=== PATIENT | female | born 1940 | race African-American/Black ===

== ENCOUNTER 2020-04-27 10:17 | Inpatient (IN) | payer OTHER ==
[~2020-04-27] VITALS: Ht 170.2 cm; Wt 80.3 kg
[2020-04-27] MEDS ORDERED: VANCOMYCIN 1 G PREMIX 200 ML IV ONE (10:45)
[2020-04-27] MEDS ORDERED: PIPERACILLIN/TAZ 3.375G PREMIX 50 ML IV ONE (10:45)
[2020-04-27] MEDS ORDERED: DEXAMETHASONE 10 MG/ML VIAL IV ONE (11:15)
[2020-04-27 11:35] LABS: HEMATOCRIT. 37.2 % (36.0-48.0); HEMOGLOBIN. 12.2 g/dL (12.0-16.0); MEAN CORPUSCULAR HEMOGLOBIN 31.1 pg (28.0-32.0); MEAN PLATELET VOLUME 8.4 fl (7.4-10.4); PLATELET 218 x1000/uL (130-400); RED BLOOD CELL COUNT 3.92 mill/uL (4.2-5.4); RED CELL DISTRIBUTION WIDTH 13.9 % (11.6-14.6)
[2020-04-27 11:40] LABS: CHLORIDE 105 mEq/L (98-107)
[2020-04-27 11:45] LABS: D-DIMER 1.07 mg/L FEU (<0.50); INR 1.3; PROTHROMBIN TIME 13.4 sec (9.6-11.0)
[2020-04-27] MEDS ORDERED: POTASSIUM CHLORIDE 20MEQ TABLET SR PO NR (12:00)
[2020-04-27 12:14] LABS: PLATELET ESTIMATE NORMAL
[2020-04-27 12:25] LABS: CLARITY URINE CLEAR (CLEAR); COLOR URINE YELLOW (YELLOW); KETONES URINE 1+ (NEGATIVE); LEUKOCYTE ESTERASE URINE NEGATIVE (NEGATIVE); NITRITE URINE NEGATIVE (NEGATIVE); OCCULT BLOOD URINE NEGATIVE (NEGATIVE); PH URINE 6.5 (4.5-8.0); PROTEIN URINE 2+ (NEGATIVE); SPECIFIC GRAVITY URINE 1.017 (1.005-1.030)
[2020-04-27] MEDS ORDERED: KCL 10MEQ/50ML PREMIX 50 ML IV ONE (12:30)
[2020-04-27] MEDS ORDERED: DEXTROSE 50% WATER 50ML SYRINGE IV PRN (13:15)
[2020-04-27] MEDS ORDERED: GUAIFENESIN-DM 200MG-20MG/10ML UDC PO PRN (13:15)
[2020-04-27] MEDS ORDERED: ONDANSETRON HCL 4MG/2ML INJ IV PRN (13:15)
[2020-04-27] MEDS ORDERED: POTASSIUM CHLORIDE 20MEQ TABLET SR PO SCH (13:15)
[2020-04-27] MEDS ORDERED: TRAZODONE HCL 50MG TABLET PO PRN (13:15)
[2020-04-27] MEDS: AZITHROMYCIN 500 MG in DEXT 5% WATER 250 ML IV SCH (13:15)
[2020-04-27] MEDS: INSULIN LISPRO 100 UNITS/ML SUBCUT SCH ×2 (13:20→22:00)
[2020-04-27] MEDS ORDERED: ALBUTEROL 6.7GM HFA INHALER ORI PRN (14:00)
[2020-04-27] MEDS: AMLODIPINE 2.5MG TABLET PO SCH (14:00)
[2020-04-27] MEDS: ENOXAPARIN 80MG/0.8ML SYR SUBCUT SCH ×2 (14:00→23:13)
[2020-04-27] MEDS ORDERED: KCL 10MEQ/50ML PREMIX 50 ML IV SCH (14:00)
[2020-04-27] MEDS: INSULIN GLARGINE UD 100 UNITS/ML SYR SUBCUT SCH (15:00)
[2020-04-27] MEDS: BLOOD SUGAR DIAGNOSTIC STRIP TEST SCH ×2 (17:14→22:29)
[2020-04-27 21:07] LABS: TOTAL IRON BINDING CAPACITY 161 ug/dL (250-450)
[2020-04-28] MEDS: ACETAMINOPHEN 325MG TABLET PO PRN (01:42)
[2020-04-28 05:32] LABS: HEMATOCRIT. 36.2 % (36.0-48.0); HEMOGLOBIN. 12.3 g/dL (12.0-16.0); MEAN CORPUSCULAR HEMOGLOBIN 32.3 pg (28.0-32.0); MEAN CORPUSCULAR VOLUME 94.9 fL (81.0-99.0); MEAN PLATELET VOLUME 8.6 fl (7.4-10.4); PLATELET 199 x1000/uL (130-400); RED BLOOD CELL COUNT 3.82 mill/uL (4.2-5.4)
[2020-04-28 05:57] LABS: CHLORIDE 109 mEq/L (98-107)
[2020-04-28] MEDS: BLOOD SUGAR DIAGNOSTIC STRIP TEST SCH ×4 (06:38→20:06)
[2020-04-28] MEDS: INSULIN LISPRO 100 UNITS/ML SUBCUT SCH ×4 (06:38→20:11)
[2020-04-28 08:03] LABS: PLATELET ESTIMATE NORMAL
[2020-04-28] MEDS: ZINC SULFATE 220 MG ( 50 ) CAPSULE PO SCH (08:15)
[2020-04-28] MEDS: ASCORBIC ACID 500 MG TABLET PO SCH ×2 (08:16→16:19)
[2020-04-28] MEDS: ENOXAPARIN 80MG/0.8ML SYR SUBCUT SCH ×2 (08:24→20:05)
[2020-04-28] MEDS: CHOLECALCIFEROL (D3) 1000 UNIT TABLET PO SCH (08:43)
[2020-04-28] MEDS: AMLODIPINE 2.5MG TABLET PO SCH (08:43)
[2020-04-28] MEDS ORDERED: CEFTRIAXONE 1 G PREMIX 50 ML IV SCH (09:00)
[2020-04-28] MEDS: HYDROCODONE/ACETAMINOPHEN 5/325MG TABLET PO PRN (09:17)
[2020-04-28] MEDS: INSULIN GLARGINE UD 100 UNITS/ML SYR SUBCUT SCH (10:12)
[2020-04-28] MEDS: AZITHROMYCIN 500 MG in DEXT 5% WATER 250 ML IV SCH (13:25)
[2020-04-28] MEDS ORDERED: TRAMADOL 50MG TABLET PO PRN (15:30)
[2020-04-28 21:35] LABS: CLARITY URINE CLOUDY (CLEAR); COLOR URINE ORANGE (YELLOW); KETONES URINE TRACE (NEGATIVE); LEUKOCYTE ESTERASE URINE 2+ (NEGATIVE); NITRITE URINE NEGATIVE (NEGATIVE); OCCULT BLOOD URINE 3+ (NEGATIVE); PH URINE 5.5 (4.5-8.0); PROTEIN URINE 3+ (NEGATIVE); SPECIFIC GRAVITY URINE 1.029 (1.005-1.030)
[2020-04-28 21:56] LABS: *AMPHETAMINES SCREEN URINE NEGATIVE (NEGATIVE); *BARBITURATES SCREEN URINE NEGATIVE (NEGATIVE); *BENZODIAZEPINES SCREEN URINE NEGATIVE (NEGATIVE); *COCAINE SCREEN URINE NEGATIVE (NEGATIVE); METHADONE URINE SCREEN NEGATIVE (NEGATIVE); OPIATES URINE SCREEN PRESUMTIVE POSITIVE (NEGATIVE)
[2020-04-28 21:57] LABS: CANNABINOID URINE SCREEN NEGATIVE (NEGATIVE); PHENCYCLIDINE URINE SCREEN NEGATIVE (NEGATIVE)
[2020-04-29 00:18] VITALS: BP 138/81
[2020-04-29 00:20] VITALS: BP 138/81
[2020-04-29 04:00] VITALS: BP 154/88
[2020-04-29] MEDS: INSULIN LISPRO 100 UNITS/ML SUBCUT SCH ×4 (05:34→21:57)
[2020-04-29] MEDS: BLOOD SUGAR DIAGNOSTIC STRIP TEST SCH ×4 (05:34→21:00)
[2020-04-29 06:34] LABS: CHLORIDE 110 mEq/L (98-107)
[2020-04-29 06:36] LABS: BASOPHILS % 0.2 % (0.0-2.0); EOSINOPHILS % 0.3 % (0.0-5.0); HEMATOCRIT. 37.4 % (36.0-48.0); HEMOGLOBIN. 12.5 g/dL (12.0-16.0); LYMPHOCYTES % 12.3 % (20.0-50.0); MEAN CORPUSCULAR HEMOGLOBIN 31.7 pg (28.0-32.0); MEAN CORPUSCULAR VOLUME 94.8 fL (81.0-99.0); MEAN PLATELET VOLUME 8.8 fl (7.4-10.4); MONOCYTES % 13.1 % (2.0-8.0); NEUTROPHILS % 74.1 % (40.0-76.0); PLATELET 238 x1000/uL (130-400); RED BLOOD CELL COUNT 3.94 mill/uL (4.2-5.4); RED CELL DISTRIBUTION WIDTH 14.1 % (11.6-14.6)
[2020-04-29 08:00] VITALS: BP 152/75
[2020-04-29] MEDS ORDERED: POTASSIUM CHLORIDE 20MEQ TABLET SR PO NR ×3 (09:00→16:00)
[2020-04-29] MEDS: ASCORBIC ACID 500 MG TABLET PO SCH ×2 (09:39→16:22)
[2020-04-29] MEDS: CHOLECALCIFEROL (D3) 1000 UNIT TABLET PO SCH (09:39)
[2020-04-29] MEDS: AMLODIPINE 2.5MG TABLET PO SCH (09:39)
[2020-04-29] MEDS: ENOXAPARIN 80MG/0.8ML SYR SUBCUT SCH (09:39)
[2020-04-29] MEDS: ZINC SULFATE 220 MG ( 50 ) CAPSULE PO SCH (09:40)
[2020-04-29] MEDS: CEFTRIAXONE 1,000 MG in DEXTROSE 5% WATER 50 ML IV SCH ×2 (10:59→11:03)
[2020-04-29] MEDS ORDERED: DEXAMETHASONE 4MG/ML 1ML VIAL IV SCH (14:00)
[2020-04-29] MEDS ORDERED: AZITHROMYCIN 500MG in DEXTROSE 5% WATER 250ML IV SCH (15:00)
[2020-04-29 16:00] VITALS: BP 152/95
[2020-04-29] MEDS: INSULIN GLARGINE UD 100 UNITS/ML SYR SUBCUT SCH (16:21)
[2020-04-29 20:00] VITALS: BP 150/89
[2020-04-29] MEDS: ENOXAPARIN 100MG/ML SYR SUBCUT SCH (21:35)
[2020-04-30] VITALS (7 sets, daily range): BP systolic 137–176; BP diastolic 60–86
[2020-04-30] MEDS: BLOOD SUGAR DIAGNOSTIC STRIP TEST SCH ×4 (04:58→19:56)
[2020-04-30] MEDS: INSULIN LISPRO 100 UNITS/ML SUBCUT SCH ×4 (05:24→21:23)
[2020-04-30 07:12] LABS: BASOPHILS % 0.2 % (0.0-2.0); HEMATOCRIT. 39.3 % (36.0-48.0); HEMOGLOBIN. 12.8 g/dL (12.0-16.0); LYMPHOCYTES % 7.6 % (20.0-50.0); MEAN CORPUSCULAR HEMOGLOBIN 31.5 pg (28.0-32.0); MEAN CORPUSCULAR VOLUME 96.6 fL (81.0-99.0); MEAN PLATELET VOLUME 9.3 fl (7.4-10.4); MONOCYTES % 10.7 % (2.0-8.0); NEUTROPHILS % 81.5 % (40.0-76.0); PLATELET 238 x1000/uL (130-400); RED BLOOD CELL COUNT 4.07 mill/uL (4.2-5.4)
[2020-04-30 07:42] LABS: CHLORIDE 108 mEq/L (98-107)
[2020-04-30] MEDS: INSULIN GLARGINE UD 100 UNITS/ML SYR SUBCUT SCH (09:55)
[2020-04-30] MEDS: AMLODIPINE 10MG TABLET PO SCH (09:56)
[2020-04-30] MEDS: ENOXAPARIN 100MG/ML SYR SUBCUT SCH ×2 (09:56→21:16)
[2020-04-30] MEDS: ZINC SULFATE 220 MG ( 50 ) CAPSULE PO SCH (09:56)
[2020-04-30] MEDS: CHOLECALCIFEROL (D3) 1000 UNIT TABLET PO SCH (09:56)
[2020-04-30] MEDS: ASCORBIC ACID 500 MG TABLET PO SCH ×2 (09:57→18:00)
[2020-04-30] MEDS ORDERED: FUROSEMIDE 40MG/4ML VIAL IVP NR (14:45)
[2020-04-30] MEDS: DEXAMETHASONE 10 MG/ML VIAL IV SCH (18:00)
[2020-04-30] MEDS: GUAIFENESIN 600MG ER TABLET PO SCH (21:16)
[2020-05-01] VITALS: BP 138/70
[2020-05-01 04:00] VITALS: BP 148/80
[2020-05-01] MEDS: BLOOD SUGAR DIAGNOSTIC STRIP TEST SCH ×4 (05:37→21:43)
[2020-05-01] MEDS: INSULIN LISPRO 100 UNITS/ML SUBCUT SCH ×4 (06:22→21:00)
[2020-05-01 08:00] VITALS: BP 154/90
[2020-05-01 08:50] LABS: CHLORIDE 104 mEq/L (98-107)
[2020-05-01 09:02] LABS: BASOPHILS % 0.1 % (0.0-2.0); HEMATOCRIT. 41.1 % (36.0-48.0); HEMOGLOBIN. 13.6 g/dL (12.0-16.0); LYMPHOCYTES % 8.1 % (20.0-50.0); MEAN CORPUSCULAR HEMOGLOBIN 31.9 pg (28.0-32.0); MEAN CORPUSCULAR VOLUME 96.7 fL (81.0-99.0); MEAN PLATELET VOLUME 9.4 fl (7.4-10.4); MONOCYTES % 7.1 % (2.0-8.0); NEUTROPHILS % 84.7 % (40.0-76.0); PLATELET 259 x1000/uL (130-400); RED BLOOD CELL COUNT 4.26 mill/uL (4.2-5.4)
[2020-05-01] MEDS: ENOXAPARIN 100MG/ML SYR SUBCUT SCH ×2 (10:54→21:42)
[2020-05-01] MEDS: GUAIFENESIN 600MG ER TABLET PO SCH ×2 (10:55→21:43)
[2020-05-01] MEDS: CHOLECALCIFEROL (D3) 1000 UNIT TABLET PO SCH (10:55)
[2020-05-01] MEDS: ASCORBIC ACID 500 MG TABLET PO SCH ×2 (10:55→17:29)
[2020-05-01] MEDS: AMLODIPINE 10MG TABLET PO SCH (10:56)
[2020-05-01] MEDS: FUROSEMIDE 40MG/4ML VIAL IVP SCH ×2 (10:56→21:43)
[2020-05-01] MEDS: ZINC SULFATE 220 MG ( 50 ) CAPSULE PO SCH (10:56)
[2020-05-01] MEDS: POTASSIUM CHLORIDE 20MEQ/PACKET PO SCH ×2 (10:57→17:28)
[2020-05-01] MEDS: INSULIN GLARGINE UD 100 UNITS/ML SYR SUBCUT SCH (11:05)
[2020-05-01 12:00] VITALS: BP 106/70
[2020-05-01] MEDS: DEXAMETHASONE 10 MG/ML VIAL IV SCH (13:31)
[2020-05-01 16:00] VITALS: BP 144/61
[2020-05-01 20:00] VITALS: BP 133/76
[2020-05-02] VITALS: BP 103/61
[2020-05-02 04:00] VITALS: BP 115/65
[2020-05-02] MEDS: BLOOD SUGAR DIAGNOSTIC STRIP TEST SCH ×4 (06:31→21:00)
[2020-05-02] MEDS: INSULIN LISPRO 100 UNITS/ML SUBCUT SCH ×4 (07:40→22:56)
[2020-05-02 08:00] VITALS: BP 128/63
[2020-05-02 08:48] LABS: CHLORIDE 103 mEq/L (98-107)
[2020-05-02 08:55] LABS: HEMATOCRIT. 43.9 % (36.0-48.0); HEMOGLOBIN. 14.5 g/dL (12.0-16.0); MEAN CORPUSCULAR HEMOGLOBIN 31.6 pg (28.0-32.0); MEAN CORPUSCULAR VOLUME 95.8 fL (81.0-99.0); MEAN PLATELET VOLUME 9.2 fl (7.4-10.4); PLATELET 293 x1000/uL (130-400); RED BLOOD CELL COUNT 4.58 mill/uL (4.2-5.4); RED CELL DISTRIBUTION WIDTH 14.1 % (11.6-14.6)
[2020-05-02] MEDS: ENOXAPARIN 100MG/ML SYR SUBCUT SCH ×2 (10:03→22:54)
[2020-05-02] MEDS: GUAIFENESIN 600MG ER TABLET PO SCH ×2 (10:03→22:54)
[2020-05-02] MEDS: AMLODIPINE 10MG TABLET PO SCH (10:04)
[2020-05-02] MEDS: CHOLECALCIFEROL (D3) 1000 UNIT TABLET PO SCH (10:04)
[2020-05-02] MEDS: ASCORBIC ACID 500 MG TABLET PO SCH ×2 (10:05→18:22)
[2020-05-02] MEDS: ZINC SULFATE 220 MG ( 50 ) CAPSULE PO SCH (10:05)
[2020-05-02] MEDS: POTASSIUM CHLORIDE 20MEQ/PACKET PO SCH ×2 (10:05→18:23)
[2020-05-02] MEDS: FUROSEMIDE 40MG/4ML VIAL IVP SCH ×2 (10:06→22:57)
[2020-05-02] MEDS: INSULIN GLARGINE UD 100 UNITS/ML SYR SUBCUT SCH (11:36)
[2020-05-02 12:00] VITALS: BP 110/61
[2020-05-02] MEDS: DEXAMETHASONE 10 MG/ML VIAL IV SCH (14:34)
[2020-05-02 16:00] VITALS: BP 123/63
[2020-05-02 20:00] VITALS: BP 128/68
[2020-05-02 20:35] LABS: PLATELET ESTIMATE NORMAL
[2020-05-03] VITALS (7 sets, daily range): BP systolic 111–153; BP diastolic 62–92
[2020-05-03] MEDS: HYDROCODONE/ACETAMINOPHEN 5/325MG TABLET PO PRN (00:37)
[2020-05-03 06:52] LABS: CHLORIDE 103 mEq/L (98-107)
[2020-05-03 07:31] LABS: HEMATOCRIT. 43.4 % (36.0-48.0); HEMOGLOBIN. 14.2 g/dL (12.0-16.0); MEAN CORPUSCULAR HEMOGLOBIN 31.3 pg (28.0-32.0); MEAN CORPUSCULAR VOLUME 95.7 fL (81.0-99.0); MEAN PLATELET VOLUME 9.7 fl (7.4-10.4); PLATELET 277 x1000/uL (130-400); RED BLOOD CELL COUNT 4.53 mill/uL (4.2-5.4); RED CELL DISTRIBUTION WIDTH 14.6 % (11.6-14.6)
[2020-05-03] MEDS: BLOOD SUGAR DIAGNOSTIC STRIP TEST SCH ×4 (07:49→21:00)
[2020-05-03] MEDS: INSULIN LISPRO 100 UNITS/ML SUBCUT SCH ×4 (09:14→22:13)
[2020-05-03] MEDS: GUAIFENESIN 600MG ER TABLET PO SCH ×2 (09:14→22:13)
[2020-05-03] MEDS: CHOLECALCIFEROL (D3) 1000 UNIT TABLET PO SCH (09:14)
[2020-05-03] MEDS: ASCORBIC ACID 500 MG TABLET PO SCH ×2 (09:14→17:22)
[2020-05-03] MEDS: ENOXAPARIN 100MG/ML SYR SUBCUT SCH ×2 (09:14→22:14)
[2020-05-03] MEDS: AMLODIPINE 10MG TABLET PO SCH (09:14)
[2020-05-03] MEDS: ZINC SULFATE 220 MG ( 50 ) CAPSULE PO SCH (09:14)
[2020-05-03] MEDS: FUROSEMIDE 40MG/4ML VIAL IVP SCH ×2 (09:14→21:41)
[2020-05-03] MEDS: POTASSIUM CHLORIDE 20MEQ/PACKET PO SCH ×2 (09:15→17:22)
[2020-05-03 11:57] LABS: PLATELET ESTIMATE NORMAL
[2020-05-03] MEDS: INSULIN GLARGINE UD 100 UNITS/ML SYR SUBCUT SCH (12:10)
[2020-05-03] MEDS: ACETAMINOPHEN 325MG TABLET PO PRN (15:47)
[2020-05-03] MEDS ORDERED: LORAZEPAM 2MG/ML CPJ IM PRN (16:30)
[2020-05-03] MEDS ORDERED: LORAZEPAM 2MG/ML CPJ IV PRN (16:44)
[2020-05-03] MEDS: DEXAMETHASONE 10 MG/ML VIAL IV SCH (17:22)
[2020-05-04] VITALS: BP 125/80
[2020-05-04 04:00] VITALS: BP_SYST 125; BP_SYST 142; BP_DIAS 80; BP_DIAS 84
[2020-05-04] MEDS: BLOOD SUGAR DIAGNOSTIC STRIP TEST SCH ×4 (04:41→21:00)
[2020-05-04] MEDS: INSULIN LISPRO 100 UNITS/ML SUBCUT SCH ×5 (06:28→21:00)
[2020-05-04 06:33] LABS: HEMATOCRIT. 45.2 % (36.0-48.0); MEAN CORPUSCULAR HEMOGLOBIN 31.8 pg (28.0-32.0); MEAN CORPUSCULAR VOLUME 95.9 fL (81.0-99.0); MEAN PLATELET VOLUME 9.6 fl (7.4-10.4); PLATELET 291 x1000/uL (130-400); RED BLOOD CELL COUNT 4.72 mill/uL (4.2-5.4); RED CELL DISTRIBUTION WIDTH 14.3 % (11.6-14.6)
[2020-05-04 06:47] LABS: CHLORIDE 103 mEq/L (98-107)
[2020-05-04 08:00] VITALS: BP 127/70
[2020-05-04] MEDS: GUAIFENESIN 600MG ER TABLET PO SCH ×2 (09:00→21:28)
[2020-05-04] MEDS: POTASSIUM CHLORIDE 20MEQ/PACKET PO SCH ×2 (09:47→21:28)
[2020-05-04] MEDS: CHOLECALCIFEROL (D3) 1000 UNIT TABLET PO SCH (09:47)
[2020-05-04] MEDS: ZINC SULFATE 220 MG ( 50 ) CAPSULE PO SCH (09:48)
[2020-05-04] MEDS: AMLODIPINE 10MG TABLET PO SCH (09:48)
[2020-05-04] MEDS: FUROSEMIDE 40MG/4ML VIAL IVP SCH ×2 (09:48→21:27)
[2020-05-04] MEDS: ASCORBIC ACID 500 MG TABLET PO SCH (09:48)
[2020-05-04] MEDS: ENOXAPARIN 100MG/ML SYR SUBCUT SCH ×2 (09:49→21:28)
[2020-05-04] MEDS: INSULIN GLARGINE UD 100 UNITS/ML SYR SUBCUT SCH (10:37)
[2020-05-04 12:00] VITALS: BP 138/80
[2020-05-04] MEDS: DEXAMETHASONE 10 MG/ML VIAL IV SCH (14:16)
[2020-05-04 14:22] LABS: PLATELET ESTIMATE NORMAL
[2020-05-04 16:00] VITALS: BP 97/76
[2020-05-04 20:00] VITALS: BP 140/90
[2020-05-05] VITALS (7 sets, daily range): BP systolic 117–140; BP diastolic 67–85
[2020-05-05] MEDS: BLOOD SUGAR DIAGNOSTIC STRIP TEST SCH ×4 (04:53→21:00)
[2020-05-05] MEDS: INSULIN LISPRO 100 UNITS/ML SUBCUT SCH ×4 (05:25→21:00)
[2020-05-05 06:40] LABS: HEMATOCRIT. 45.8 % (36.0-48.0); HEMOGLOBIN. 15.4 g/dL (12.0-16.0); MEAN CORPUSCULAR HEMOGLOBIN 32.4 pg (28.0-32.0); MEAN CORPUSCULAR VOLUME 96.6 fL (81.0-99.0); MEAN PLATELET VOLUME 9.6 fl (7.4-10.4); PLATELET 279 x1000/uL (130-400); RED BLOOD CELL COUNT 4.75 mill/uL (4.2-5.4); RED CELL DISTRIBUTION WIDTH 14.3 % (11.6-14.6)
[2020-05-05 06:45] LABS: CHLORIDE 104 mEq/L (98-107)
[2020-05-05] MEDS: CHOLECALCIFEROL (D3) 1000 UNIT TABLET PO SCH (09:00)
[2020-05-05] MEDS: ENOXAPARIN 100MG/ML SYR SUBCUT SCH ×2 (09:54→23:04)
[2020-05-05] MEDS: ZINC SULFATE 220 MG ( 50 ) CAPSULE PO SCH (09:55)
[2020-05-05] MEDS: AMLODIPINE 10MG TABLET PO SCH (09:55)
[2020-05-05] MEDS: GUAIFENESIN 600MG ER TABLET PO SCH ×2 (09:56→23:04)
[2020-05-05] MEDS: INSULIN GLARGINE UD 100 UNITS/ML SYR SUBCUT SCH (10:01)
[2020-05-05] MEDS: METOPROLOL TARTRATE 25MG TABLET PO SCH ×2 (11:45→23:04)
[2020-05-05] MEDS: POTASSIUM CHLORIDE 20MEQ/PACKET PO SCH ×2 (11:46→17:12)
[2020-05-05] MEDS: DEXAMETHASONE 10 MG/ML VIAL IV SCH (14:46)
[2020-05-05 23:10] LABS: PLATELET ESTIMATE NORMAL
[2020-05-06] VITALS: BP 129/76
[2020-05-06 04:00] VITALS: BP 137/81
[2020-05-06] MEDS: BLOOD SUGAR DIAGNOSTIC STRIP TEST SCH ×4 (06:10→21:00)
[2020-05-06] MEDS: INSULIN LISPRO 100 UNITS/ML SUBCUT SCH ×4 (06:11→22:49)
[2020-05-06 06:48] LABS: HEMOGLOBIN. 16.5 g/dL (12.0-16.0); MEAN CORPUSCULAR VOLUME 99.2 fL (81.0-99.0); MEAN PLATELET VOLUME 10.1 fl (7.4-10.4); PLATELET 216 x1000/uL (130-400); RED BLOOD CELL COUNT 5.14 mill/uL (4.2-5.4); RED CELL DISTRIBUTION WIDTH 14.4 % (11.6-14.6)
[2020-05-06 06:56] LABS: CHLORIDE 107 mEq/L (98-107)
[2020-05-06 08:00] VITALS: BP 128/67
[2020-05-06] MEDS: INSULIN GLARGINE UD 100 UNITS/ML SYR SUBCUT SCH (10:29)
[2020-05-06] MEDS: ENOXAPARIN 100MG/ML SYR SUBCUT SCH ×2 (10:30→22:49)
[2020-05-06] MEDS: ZINC SULFATE 220 MG ( 50 ) CAPSULE PO SCH (10:30)
[2020-05-06] MEDS: AMLODIPINE 10MG TABLET PO SCH (10:30)
[2020-05-06] MEDS: METOPROLOL TARTRATE 25MG TABLET PO SCH ×2 (10:30→22:48)
[2020-05-06] MEDS: CHOLECALCIFEROL (D3) 1000 UNIT TABLET PO SCH (10:30)
[2020-05-06] MEDS: POTASSIUM CHLORIDE 20MEQ/PACKET PO SCH (10:31)
[2020-05-06] MEDS: GUAIFENESIN 600MG ER TABLET PO SCH ×2 (10:31→22:47)
[2020-05-06 12:00] VITALS: BP 134/85
[2020-05-06] MEDS: DEXAMETHASONE 10 MG/ML VIAL IV SCH (12:52)
[2020-05-06 13:12] LABS: PLATELET ESTIMATE NORMAL
[2020-05-06 16:00] VITALS: BP 140/85
[2020-05-06 20:00] VITALS: BP 158/83
[2020-05-07] VITALS (7 sets, daily range): BP systolic 120–148; BP diastolic 60–83
[2020-05-07] MEDS: INSULIN LISPRO 100 UNITS/ML SUBCUT SCH ×4 (06:14→21:00)
[2020-05-07] MEDS: BLOOD SUGAR DIAGNOSTIC STRIP TEST SCH ×4 (06:14→21:50)
[2020-05-07 07:03] LABS: HEMATOCRIT. 44.8 % (36.0-48.0); HEMOGLOBIN. 14.7 g/dL (12.0-16.0); MEAN CORPUSCULAR HEMOGLOBIN 31.8 pg (28.0-32.0); MEAN PLATELET VOLUME 10.1 fl (7.4-10.4); PLATELET 239 x1000/uL (130-400); RED BLOOD CELL COUNT 4.62 mill/uL (4.2-5.4); RED CELL DISTRIBUTION WIDTH 14.7 % (11.6-14.6)
[2020-05-07] MEDS: ZINC SULFATE 220 MG ( 50 ) CAPSULE PO SCH (10:02)
[2020-05-07] MEDS: AMLODIPINE 10MG TABLET PO SCH (10:02)
[2020-05-07] MEDS: GUAIFENESIN 600MG ER TABLET PO SCH ×2 (10:02→21:50)
[2020-05-07] MEDS: CHOLECALCIFEROL (D3) 1000 UNIT TABLET PO SCH (10:02)
[2020-05-07] MEDS: METOPROLOL TARTRATE 25MG TABLET PO SCH ×2 (10:02→21:50)
[2020-05-07] MEDS: ENOXAPARIN 100MG/ML SYR SUBCUT SCH ×2 (10:03→21:50)
[2020-05-07] MEDS: INSULIN GLARGINE UD 100 UNITS/ML SYR SUBCUT SCH (10:04)
[2020-05-07] MEDS: ASPIRIN 81MG TABLET PO SCH (10:07)
[2020-05-07 10:12] LABS: CHLORIDE 102 mEq/L (98-107)
[2020-05-07] MEDS: ACETAMINOPHEN 325MG TABLET PO PRN (10:41)
[2020-05-07] MEDS: DEXAMETHASONE 10 MG/ML VIAL IV SCH (13:16)
[2020-05-07 14:11] LABS: PLATELET ESTIMATE NORMAL
[2020-05-08 04:00] VITALS: BP 144/59
[2020-05-08] MEDS: INSULIN LISPRO 100 UNITS/ML SUBCUT SCH ×4 (05:38→21:18)
[2020-05-08] MEDS: BLOOD SUGAR DIAGNOSTIC STRIP TEST SCH ×4 (05:38→21:17)
[2020-05-08 07:30] LABS: HEMATOCRIT. 42.6 % (36.0-48.0); HEMOGLOBIN. 14.1 g/dL (12.0-16.0); MEAN CORPUSCULAR HEMOGLOBIN 31.8 pg (28.0-32.0); MEAN CORPUSCULAR VOLUME 96.4 fL (81.0-99.0); MEAN PLATELET VOLUME 10.1 fl (7.4-10.4); PLATELET 206 x1000/uL (130-400); RED BLOOD CELL COUNT 4.42 mill/uL (4.2-5.4); RED CELL DISTRIBUTION WIDTH 14.5 % (11.6-14.6)
[2020-05-08 08:00] VITALS: BP 153/82
[2020-05-08 08:20] LABS: CHLORIDE 101 mEq/L (98-107)
[2020-05-08] MEDS: ENOXAPARIN 100MG/ML SYR SUBCUT SCH ×2 (10:11→21:17)
[2020-05-08] MEDS: GUAIFENESIN 600MG ER TABLET PO SCH ×2 (10:11→21:16)
[2020-05-08] MEDS: ASPIRIN 81MG TABLET PO SCH (10:11)
[2020-05-08] MEDS: AMLODIPINE 10MG TABLET PO SCH (10:12)
[2020-05-08] MEDS: CHOLECALCIFEROL (D3) 1000 UNIT TABLET PO SCH (10:12)
[2020-05-08] MEDS: ZINC SULFATE 220 MG ( 50 ) CAPSULE PO SCH (10:12)
[2020-05-08] MEDS: METOPROLOL TARTRATE 25MG TABLET PO SCH ×2 (10:12→21:17)
[2020-05-08] MEDS: INSULIN GLARGINE UD 100 UNITS/ML SYR SUBCUT SCH (10:13)
[2020-05-08 12:00] VITALS: BP 132/76
[2020-05-08] MEDS: DEXAMETHASONE 10 MG/ML VIAL IV SCH (13:11)
[2020-05-08] MEDS: ACETAMINOPHEN 325MG TABLET PO PRN (14:37)
[2020-05-08 16:00] VITALS: BP 117/81
[2020-05-08 20:00] VITALS: BP 111/60
[2020-05-08 21:12] LABS: PLATELET ESTIMATE NORMAL
[2020-05-09] VITALS: BP 145/60
[2020-05-09 04:00] VITALS: BP 151/81
[2020-05-09] MEDS: BLOOD SUGAR DIAGNOSTIC STRIP TEST SCH ×4 (06:20→21:04)
[2020-05-09] MEDS: INSULIN LISPRO 100 UNITS/ML SUBCUT SCH ×4 (06:20→21:03)
[2020-05-09 08:00] VITALS: BP 132/76
[2020-05-09] MEDS: CHOLECALCIFEROL (D3) 1000 UNIT TABLET PO SCH (09:26)
[2020-05-09] MEDS: ENOXAPARIN 100MG/ML SYR SUBCUT SCH (09:26)
[2020-05-09] MEDS: AMLODIPINE 10MG TABLET PO SCH (09:27)
[2020-05-09] MEDS: ZINC SULFATE 220 MG ( 50 ) CAPSULE PO SCH (09:27)
[2020-05-09] MEDS: GUAIFENESIN 600MG ER TABLET PO SCH ×2 (09:28→21:02)
[2020-05-09] MEDS: ASPIRIN 81MG TABLET PO SCH (09:28)
[2020-05-09] MEDS: METOPROLOL TARTRATE 25MG TABLET PO SCH ×2 (09:28→21:02)
[2020-05-09 12:00] VITALS: BP 122/69
[2020-05-09] MEDS: INSULIN GLARGINE UD 100 UNITS/ML SYR SUBCUT SCH (12:59)
[2020-05-09 17:00] VITALS: BP 122/74
[2020-05-09 20:00] VITALS: BP 118/67
[2020-05-10] VITALS: BP 125/77
[2020-05-10 06:43] VITALS: BP 144/83
[2020-05-10] MEDS: BLOOD SUGAR DIAGNOSTIC STRIP TEST SCH ×4 (07:10→21:22)
[2020-05-10] MEDS: INSULIN LISPRO 100 UNITS/ML SUBCUT SCH ×4 (07:40→21:00)
[2020-05-10 08:00] VITALS: BP 127/75
[2020-05-10] MEDS: CHOLECALCIFEROL (D3) 1000 UNIT TABLET PO SCH (10:58)
[2020-05-10] MEDS: ASPIRIN 81MG TABLET PO SCH (10:58)
[2020-05-10] MEDS: ENOXAPARIN 30MG/0.3ML SYR SUBCUT SCH ×2 (10:58→21:21)
[2020-05-10] MEDS: METOPROLOL TARTRATE 25MG TABLET PO SCH ×2 (10:59→21:21)
[2020-05-10] MEDS: ZINC SULFATE 220 MG ( 50 ) CAPSULE PO SCH (10:59)
[2020-05-10] MEDS: GUAIFENESIN 600MG ER TABLET PO SCH ×2 (10:59→21:21)
[2020-05-10] MEDS: AMLODIPINE 10MG TABLET PO SCH (10:59)
[2020-05-10] MEDS: INSULIN GLARGINE UD 100 UNITS/ML SYR SUBCUT SCH (11:02)
[2020-05-10 12:00] VITALS: BP 126/73
[2020-05-10 16:00] VITALS: BP_SYST 124; BP_SYST 126; BP_DIAS 72; BP_DIAS 74
[2020-05-10 17:10] LABS: BASOPHILS % 0.2 % (0.0-2.0); EOSINOPHILS % 0.5 % (0.0-5.0); HEMATOCRIT. 41.4 % (36.0-48.0); HEMOGLOBIN. 13.8 g/dL (12.0-16.0); LYMPHOCYTES % 8.1 % (20.0-50.0); MEAN CORPUSCULAR HEMOGLOBIN 31.7 pg (28.0-32.0); MEAN CORPUSCULAR VOLUME 95.3 fL (81.0-99.0); MONOCYTES % 7.9 % (2.0-8.0); NEUTROPHILS % 83.3 % (40.0-76.0); PLATELET 181 x1000/uL (130-400); RED BLOOD CELL COUNT 4.34 mill/uL (4.2-5.4); RED CELL DISTRIBUTION WIDTH 14.4 % (11.6-14.6)
[2020-05-10 17:17] LABS: CHLORIDE 103 mEq/L (98-107)
[2020-05-10 20:00] VITALS: BP 128/73
[2020-05-11] VITALS: BP 128/78
[2020-05-11 04:00] VITALS: BP 129/77
[2020-05-11] MEDS: INSULIN LISPRO 100 UNITS/ML SUBCUT SCH ×4 (06:25→20:47)
[2020-05-11] MEDS: BLOOD SUGAR DIAGNOSTIC STRIP TEST SCH ×4 (06:25→20:47)
[2020-05-11 08:43] LABS: BASOPHILS % 0.2 % (0.0-2.0); EOSINOPHILS % 0.8 % (0.0-5.0); HEMATOCRIT. 40.6 % (36.0-48.0); HEMOGLOBIN. 13.6 g/dL (12.0-16.0); LYMPHOCYTES % 9.9 % (20.0-50.0); MEAN CORPUSCULAR HEMOGLOBIN 32.2 pg (28.0-32.0); MEAN CORPUSCULAR VOLUME 95.9 fL (81.0-99.0); MEAN PLATELET VOLUME 10.6 fl (7.4-10.4); MONOCYTES % 8.6 % (2.0-8.0); NEUTROPHILS % 80.5 % (40.0-76.0); PLATELET 140 x1000/uL (130-400); RED BLOOD CELL COUNT 4.23 mill/uL (4.2-5.4); RED CELL DISTRIBUTION WIDTH 14.2 % (11.6-14.6)
[2020-05-11 08:44] VITALS: BP 122/75
[2020-05-11] MEDS: ASPIRIN 81MG TABLET PO SCH (09:00)
[2020-05-11] MEDS: AMLODIPINE 10MG TABLET PO SCH (09:00)
[2020-05-11] MEDS: METOPROLOL TARTRATE 25MG TABLET PO SCH ×2 (09:00→20:37)
[2020-05-11] MEDS: ENOXAPARIN 30MG/0.3ML SYR SUBCUT SCH ×2 (09:00→20:37)
[2020-05-11] MEDS: ZINC SULFATE 220 MG ( 50 ) CAPSULE PO SCH (09:00)
[2020-05-11] MEDS: GUAIFENESIN 600MG ER TABLET PO SCH ×2 (09:00→20:37)
[2020-05-11] MEDS: CHOLECALCIFEROL (D3) 1000 UNIT TABLET PO SCH (09:00)
[2020-05-11 09:03] LABS: CHLORIDE 105 mEq/L (98-107)
[2020-05-11] MEDS: INSULIN GLARGINE UD 100 UNITS/ML SYR SUBCUT SCH (10:00)
[2020-05-11 11:49] VITALS: BP 141/92
[2020-05-11 16:22] VITALS: BP 155/84
[2020-05-11 20:00] VITALS: BP 131/71
[2020-05-12] VITALS: BP 127/71
[2020-05-12 04:00] VITALS: BP 118/61
[2020-05-12] MEDS: BLOOD SUGAR DIAGNOSTIC STRIP TEST SCH ×4 (06:06→21:02)
[2020-05-12 07:04] LABS: BASOPHILS % 0.4 % (0.0-2.0); EOSINOPHILS % 1.5 % (0.0-5.0); HEMATOCRIT. 42.1 % (36.0-48.0); HEMOGLOBIN. 13.9 g/dL (12.0-16.0); MEAN CORPUSCULAR VOLUME 96.9 fL (81.0-99.0); MEAN PLATELET VOLUME 10.9 fl (7.4-10.4); MONOCYTES % 6.2 % (2.0-8.0); NEUTROPHILS % 84.9 % (40.0-76.0); PLATELET 166 x1000/uL (130-400); RED BLOOD CELL COUNT 4.34 mill/uL (4.2-5.4); RED CELL DISTRIBUTION WIDTH 14.3 % (11.6-14.6)
[2020-05-12 07:30] LABS: CHLORIDE 107 mEq/L (98-107)
[2020-05-12] MEDS: INSULIN LISPRO 100 UNITS/ML SUBCUT SCH ×4 (07:40→21:00)
[2020-05-12 08:00] VITALS: BP 101/52
[2020-05-12] MEDS: CHOLECALCIFEROL (D3) 1000 UNIT TABLET PO SCH (09:00)
[2020-05-12] MEDS: ZINC SULFATE 220 MG ( 50 ) CAPSULE PO SCH (09:00)
[2020-05-12] MEDS ORDERED: METOPROLOL TARTRATE 50MG TABLET PO SCH (09:00)
[2020-05-12] MEDS: GUAIFENESIN 600MG ER TABLET PO SCH ×2 (09:00→20:56)
[2020-05-12] MEDS: ASPIRIN 81MG TABLET PO SCH (09:00)
[2020-05-12] MEDS: AMLODIPINE 10MG TABLET PO SCH (09:00)
[2020-05-12] MEDS: ENOXAPARIN 30MG/0.3ML SYR SUBCUT SCH ×2 (10:11→20:57)
[2020-05-12] MEDS: INSULIN GLARGINE UD 100 UNITS/ML SYR SUBCUT SCH (10:16)
[2020-05-12] MEDS ORDERED: SODIUM POLYSTYRENE SULFONATE 15 G/60 ML BOT PO SCH (11:00)
[2020-05-12 11:03] VITALS: BP 133/73
[2020-05-12 15:36] VITALS: BP 120/71
[2020-05-12 20:00] VITALS: BP 122/86
[2020-05-12] MEDS ORDERED: METOPROLOL TARTRATE 25MG TABLET PO SCH (21:00)
[2020-05-12] MEDS ORDERED: IVERMECTIN 3 MG TABLET PO NR (22:30)
[2020-05-13] VITALS: BP 137/81
[2020-05-13 04:00] VITALS: BP 107/70
[2020-05-13] MEDS: BLOOD SUGAR DIAGNOSTIC STRIP TEST SCH ×4 (06:22→21:00)
[2020-05-13 06:44] LABS: HEMATOCRIT. 39.6 % (36.0-48.0); HEMOGLOBIN. 13.1 g/dL (12.0-16.0); MEAN CORPUSCULAR HEMOGLOBIN 31.9 pg (28.0-32.0); MEAN CORPUSCULAR VOLUME 96.5 fL (81.0-99.0); MEAN PLATELET VOLUME 10.9 fl (7.4-10.4); PLATELET 156 x1000/uL (130-400); RED CELL DISTRIBUTION WIDTH 14.4 % (11.6-14.6)
[2020-05-13 07:32] LABS: PLATELET ESTIMATE NORMAL
[2020-05-13] MEDS: INSULIN LISPRO 100 UNITS/ML SUBCUT SCH ×3 (07:38→20:38)
[2020-05-13 08:00] VITALS: BP 117/71
[2020-05-13] MEDS: AMLODIPINE 10MG TABLET PO SCH (09:00)
[2020-05-13] MEDS: CHOLECALCIFEROL (D3) 1000 UNIT TABLET PO SCH ×2 (09:00→09:57)
[2020-05-13] MEDS: ASPIRIN 81MG TABLET PO SCH ×2 (09:00→09:57)
[2020-05-13] MEDS: GUAIFENESIN 600MG ER TABLET PO SCH ×3 (09:00→22:52)
[2020-05-13] MEDS: ZINC SULFATE 220 MG ( 50 ) CAPSULE PO SCH ×2 (09:00→09:57)
[2020-05-13] MEDS: METOPROLOL TARTRATE 50MG TABLET PO SCH ×3 (09:00→21:00)
[2020-05-13] MEDS: ENOXAPARIN 30MG/0.3ML SYR SUBCUT SCH ×2 (09:57→22:52)
[2020-05-13] MEDS: INSULIN GLARGINE UD 100 UNITS/ML SYR SUBCUT SCH (10:53)
[2020-05-13 12:00] VITALS: BP 110/67
[2020-05-13 16:00] VITALS: BP 130/76
[2020-05-13 20:00] VITALS: BP 102/62
[2020-05-14] VITALS: BP 112/68
[2020-05-14 04:00] VITALS: BP 116/56
[2020-05-14] MEDS: BLOOD SUGAR DIAGNOSTIC STRIP TEST SCH ×4 (05:33→19:54)
[2020-05-14 05:39] LABS: HEMATOCRIT. 39.3 % (36.0-48.0); MEAN CORPUSCULAR VOLUME 97.1 fL (81.0-99.0); MEAN PLATELET VOLUME 11.4 fl (7.4-10.4); PLATELET 167 x1000/uL (130-400); RED BLOOD CELL COUNT 4.05 mill/uL (4.2-5.4); RED CELL DISTRIBUTION WIDTH 14.5 % (11.6-14.6)
[2020-05-14] MEDS: INSULIN LISPRO 100 UNITS/ML SUBCUT SCH ×4 (05:51→21:00)
[2020-05-14 08:00] VITALS: BP 97/57
[2020-05-14] MEDS: CHOLECALCIFEROL (D3) 1000 UNIT TABLET PO SCH (09:00)
[2020-05-14] MEDS: AMLODIPINE 10MG TABLET PO SCH (09:00)
[2020-05-14] MEDS: ENOXAPARIN 30MG/0.3ML SYR SUBCUT SCH ×2 (09:32→22:04)
[2020-05-14] MEDS: ZINC SULFATE 220 MG ( 50 ) CAPSULE PO SCH (09:33)
[2020-05-14] MEDS: ASPIRIN 81MG TABLET PO SCH (09:33)
[2020-05-14] MEDS: GUAIFENESIN 600MG ER TABLET PO SCH (09:33)
[2020-05-14] MEDS: METOPROLOL TARTRATE 50MG TABLET PO SCH ×2 (09:34→21:00)
[2020-05-14] MEDS ORDERED: POTASSIUM CHLORIDE INJ 40 MEQ in DEXT 5% WATER 250 ML IV SCH (11:00)
[2020-05-14] MEDS: INSULIN GLARGINE UD 100 UNITS/ML SYR SUBCUT SCH (11:25)
[2020-05-14 12:00] VITALS: BP 95/60
[2020-05-14 14:02] LABS: NUCLEATED RED BLOOD CELLS 1 /100 WBC
[2020-05-14 14:03] LABS: PLATELET ESTIMATE NORMAL
[2020-05-14 16:00] VITALS: BP 107/62
[2020-05-14 20:00] VITALS: BP 93/51
[2020-05-14] MEDS ORDERED: IVERMECTIN 3 MG TABLET PO NR (21:00)
[2020-05-15] VITALS: BP 110/64
[2020-05-15 04:00] VITALS: BP 120/65
[2020-05-15] MEDS: BLOOD SUGAR DIAGNOSTIC STRIP TEST SCH ×4 (05:27→21:51)
[2020-05-15] MEDS: INSULIN LISPRO 100 UNITS/ML SUBCUT SCH ×4 (06:11→21:00)
[2020-05-15 08:00] VITALS: BP 111/63
[2020-05-15] MEDS: CHOLECALCIFEROL (D3) 1000 UNIT TABLET PO SCH (09:00)
[2020-05-15] MEDS: ZINC SULFATE 220 MG ( 50 ) CAPSULE PO SCH (09:00)
[2020-05-15] MEDS: ASPIRIN 81MG TABLET PO SCH (09:54)
[2020-05-15] MEDS: ENOXAPARIN 30MG/0.3ML SYR SUBCUT SCH (09:54)
[2020-05-15] MEDS: METOPROLOL TARTRATE 50MG TABLET PO SCH ×2 (09:56→21:00)
[2020-05-15] MEDS: INSULIN GLARGINE UD 100 UNITS/ML SYR SUBCUT SCH (09:58)
[2020-05-15] MEDS: DEXAMETHASONE 4MG/ML 1ML VIAL IV SCH (12:20)
[2020-05-15 12:23] LABS: HEMATOCRIT. 40.9 % (36.0-48.0); HEMOGLOBIN. 13.3 g/dL (12.0-16.0); MEAN CORPUSCULAR HEMOGLOBIN 31.8 pg (28.0-32.0); MEAN CORPUSCULAR VOLUME 97.6 fL (81.0-99.0); MEAN PLATELET VOLUME 10.9 fl (7.4-10.4); PLATELET 159 x1000/uL (130-400); RED BLOOD CELL COUNT 4.19 mill/uL (4.2-5.4); RED CELL DISTRIBUTION WIDTH 14.7 % (11.6-14.6)
[2020-05-15 15:26] LABS: NUCLEATED RED BLOOD CELLS 3 /100 WBC
[2020-05-15 15:27] LABS: PLATELET ESTIMATE NORMAL
[2020-05-15 20:00] VITALS: BP 104/67
[2020-05-16] VITALS: BP 111/70
[2020-05-16 04:00] VITALS: BP 109/72
[2020-05-16] MEDS: BLOOD SUGAR DIAGNOSTIC STRIP TEST SCH ×5 (06:30→21:43)
[2020-05-16] MEDS: INSULIN LISPRO 100 UNITS/ML SUBCUT SCH ×4 (07:34→22:17)
[2020-05-16 08:00] VITALS: BP 120/68
[2020-05-16] MEDS: CHOLECALCIFEROL (D3) 1000 UNIT TABLET PO SCH (09:07)
[2020-05-16] MEDS: ASPIRIN 81MG TABLET PO SCH (09:07)
[2020-05-16] MEDS: DEXAMETHASONE 4MG/ML 1ML VIAL IV SCH (09:07)
[2020-05-16] MEDS: METOPROLOL TARTRATE 50MG TABLET PO SCH ×2 (09:07→20:38)
[2020-05-16] MEDS: ZINC SULFATE 220 MG ( 50 ) CAPSULE PO SCH (09:07)
[2020-05-16] MEDS: ENOXAPARIN 40MG/0.4ML SYR SUBCUT SCH (09:08)
[2020-05-16] MEDS: INSULIN GLARGINE UD 100 UNITS/ML SYR SUBCUT SCH (09:10)
[2020-05-16 12:00] VITALS: BP 126/69
[2020-05-16 12:51] LABS: HEMATOCRIT. 37.2 % (36.0-48.0); HEMOGLOBIN. 12.2 g/dL (12.0-16.0); MEAN CORPUSCULAR HEMOGLOBIN 31.8 pg (28.0-32.0); MEAN CORPUSCULAR VOLUME 97.2 fL (81.0-99.0); MEAN PLATELET VOLUME 11.2 fl (7.4-10.4); PLATELET 146 x1000/uL (130-400); RED BLOOD CELL COUNT 3.83 mill/uL (4.2-5.4); RED CELL DISTRIBUTION WIDTH 15.1 % (11.6-14.6)
[2020-05-16 16:00] VITALS: BP 130/75
[2020-05-16 20:00] VITALS: BP 123/78
[2020-05-16 22:45] LABS: NUCLEATED RED BLOOD CELLS 4 /100 WBC
[2020-05-16 22:46] LABS: PLATELET ESTIMATE NORMAL
[2020-05-17] VITALS: BP 121/72
[2020-05-17 04:00] VITALS: BP 110/74
[2020-05-17 07:37] LABS: HEMATOCRIT. 37.3 % (36.0-48.0); MEAN CORPUSCULAR HEMOGLOBIN 31.7 pg (28.0-32.0); MEAN CORPUSCULAR VOLUME 98.4 fL (81.0-99.0); MEAN PLATELET VOLUME 11.3 fl (7.4-10.4); PLATELET 154 x1000/uL (130-400); RED BLOOD CELL COUNT 3.79 mill/uL (4.2-5.4); RED CELL DISTRIBUTION WIDTH 14.9 % (11.6-14.6)
[2020-05-17 08:00] VITALS: BP 122/70
[2020-05-17] MEDS: METOPROLOL TARTRATE 50MG TABLET PO SCH ×2 (09:00→21:05)
[2020-05-17] MEDS: ZINC SULFATE 220 MG ( 50 ) CAPSULE PO SCH (11:42)
[2020-05-17] MEDS: DEXAMETHASONE 4MG/ML 1ML VIAL IV SCH (11:42)
[2020-05-17] MEDS: ENOXAPARIN 40MG/0.4ML SYR SUBCUT SCH (11:42)
[2020-05-17] MEDS: ASPIRIN 81MG TABLET PO SCH (11:44)
[2020-05-17 12:00] VITALS: BP 162/80
[2020-05-17] MEDS: BLOOD SUGAR DIAGNOSTIC STRIP TEST SCH ×3 (12:10→21:05)
[2020-05-17] MEDS: INSULIN GLARGINE UD 100 UNITS/ML SYR SUBCUT SCH (12:23)
[2020-05-17] MEDS: CHOLECALCIFEROL (D3) 1000 UNIT TABLET PO SCH (13:49)
[2020-05-17] MEDS: INSULIN LISPRO 100 UNITS/ML SUBCUT SCH ×3 (14:08→21:06)
[2020-05-17 14:32] LABS: PLATELET ESTIMATE NORMAL
[2020-05-17 16:00] VITALS: BP_SYST 142
[2020-05-17] MEDS: PANTOPRAZOLE SODIUM 40 MG/VIAL IV SCH (18:41)
[2020-05-17 20:00] VITALS: BP 126/66
[2020-05-18] VITALS: BP 119/77
[2020-05-18 04:00] VITALS: BP 126/70
[2020-05-18 06:23] LABS: HEMATOCRIT. 37.4 % (36.0-48.0); HEMOGLOBIN. 12.2 g/dL (12.0-16.0); MEAN CORPUSCULAR HEMOGLOBIN 32.4 pg (28.0-32.0); MEAN CORPUSCULAR VOLUME 99.5 fL (81.0-99.0); MEAN PLATELET VOLUME 11.3 fl (7.4-10.4); PLATELET 144 x1000/uL (130-400); RED BLOOD CELL COUNT 3.76 mill/uL (4.2-5.4); RED CELL DISTRIBUTION WIDTH 15.3 % (11.6-14.6)
[2020-05-18] MEDS: BLOOD SUGAR DIAGNOSTIC STRIP TEST SCH ×4 (06:41→20:21)
[2020-05-18 08:04] VITALS: BP 138/67
[2020-05-18] MEDS: DEXAMETHASONE 4MG/ML 1ML VIAL IV SCH (10:16)
[2020-05-18] MEDS: CHOLECALCIFEROL (D3) 1000 UNIT TABLET PO SCH (10:17)
[2020-05-18] MEDS: ZINC SULFATE 220 MG ( 50 ) CAPSULE PO SCH (10:17)
[2020-05-18] MEDS: PANTOPRAZOLE SODIUM 40 MG/VIAL IV SCH ×2 (10:17→17:24)
[2020-05-18] MEDS: ASPIRIN 81MG TABLET PO SCH (10:17)
[2020-05-18] MEDS: ENOXAPARIN 40MG/0.4ML SYR SUBCUT SCH (10:17)
[2020-05-18] MEDS: METOPROLOL TARTRATE 50MG TABLET PO SCH ×2 (10:18→21:00)
[2020-05-18] MEDS: INSULIN LISPRO 100 UNITS/ML SUBCUT SCH ×4 (10:20→20:52)
[2020-05-18 12:04] VITALS: BP 117/79
[2020-05-18 14:13] LABS: CREATINE KINASE 296 IU/L (26-192)
[2020-05-18] MEDS: SODIUM CHLORIDE 0.45% 1,000 ML IV SCH (14:22)
[2020-05-18 16:02] VITALS: BP 136/75
[2020-05-18 16:20] LABS: NUCLEATED RED BLOOD CELLS 4 /100 WBC; PLATELET ESTIMATE NORMAL
[2020-05-18] MEDS: ACETAMINOPHEN 325MG TABLET PO PRN (17:24)
[2020-05-18 20:00] VITALS: BP 104/59
[2020-05-19] VITALS: BP 106/63
[2020-05-19] MEDS: SODIUM CHLORIDE 0.45% 1,000 ML IV SCH ×2 (02:20→20:44)
[2020-05-19 04:00] VITALS: BP 126/73
[2020-05-19] MEDS: BLOOD SUGAR DIAGNOSTIC STRIP TEST SCH ×4 (06:31→20:49)
[2020-05-19 07:02] LABS: HEMATOCRIT. 37.7 % (36.0-48.0); MEAN CORPUSCULAR HEMOGLOBIN 32.1 pg (28.0-32.0); MEAN CORPUSCULAR VOLUME 101.1 fL (81.0-99.0); MEAN PLATELET VOLUME 11.8 fl (7.4-10.4); PLATELET 143 x1000/uL (130-400); RED BLOOD CELL COUNT 3.73 mill/uL (4.2-5.4); RED CELL DISTRIBUTION WIDTH 15.6 % (11.6-14.6)
[2020-05-19 08:42] VITALS: BP 130/58
[2020-05-19] MEDS: DEXAMETHASONE 4MG/ML 1ML VIAL IV SCH (08:59)
[2020-05-19] MEDS: ZINC SULFATE 220 MG ( 50 ) CAPSULE PO SCH (09:00)
[2020-05-19] MEDS: METOPROLOL TARTRATE 50MG TABLET PO SCH ×2 (09:00→20:45)
[2020-05-19] MEDS: PANTOPRAZOLE SODIUM 40 MG/VIAL IV SCH (09:00)
[2020-05-19] MEDS: CHOLECALCIFEROL (D3) 1000 UNIT TABLET PO SCH (09:00)
[2020-05-19] MEDS: ASPIRIN 81MG TABLET PO SCH (09:01)
[2020-05-19] MEDS: INSULIN LISPRO 100 UNITS/ML SUBCUT SCH ×4 (09:02→20:59)
[2020-05-19] MEDS: INSULIN GLARGINE UD 100 UNITS/ML SYR SUBCUT SCH (10:06)
[2020-05-19 11:55] VITALS: BP 117/22
[2020-05-19 16:00] VITALS: BP 103/64
[2020-05-19 20:00] VITALS: BP 125/59
[2020-05-19 20:38] LABS: NUCLEATED RED BLOOD CELLS 6 /100 WBC; PLATELET ESTIMATE NORMAL
[2020-05-20] VITALS (7 sets, daily range): BP systolic 106–146; BP diastolic 57–89
[2020-05-20] MEDS: SODIUM CHLORIDE 0.45% 1,000 ML IV SCH ×2 (05:00→08:50)
[2020-05-20] MEDS: BLOOD SUGAR DIAGNOSTIC STRIP TEST SCH ×4 (06:57→20:55)
[2020-05-20 07:19] LABS: HEMATOCRIT. 33.7 % (36.0-48.0); HEMOGLOBIN. 10.9 g/dL (12.0-16.0); MEAN CORPUSCULAR HEMOGLOBIN 33.1 pg (28.0-32.0); MEAN CORPUSCULAR VOLUME 101.8 fL (81.0-99.0); MEAN PLATELET VOLUME 12.1 fl (7.4-10.4); PLATELET 115 x1000/uL (130-400); RED BLOOD CELL COUNT 3.31 mill/uL (4.2-5.4); RED CELL DISTRIBUTION WIDTH 16.4 % (11.6-14.6)
[2020-05-20] MEDS: DEXAMETHASONE 4MG/ML 1ML VIAL IV SCH (08:19)
[2020-05-20] MEDS: FAMOTIDINE 20MG/2ML VIAL IV SCH (08:19)
[2020-05-20] MEDS: ASPIRIN 81MG TABLET PO SCH (08:19)
[2020-05-20] MEDS: METOPROLOL TARTRATE 50MG TABLET PO SCH ×2 (08:26→20:55)
[2020-05-20] MEDS: INSULIN LISPRO 100 UNITS/ML SUBCUT SCH ×4 (08:28→22:37)
[2020-05-20] MEDS: INSULIN GLARGINE UD 100 UNITS/ML SYR SUBCUT SCH (11:48)
[2020-05-20 16:21] LABS: NUCLEATED RED BLOOD CELLS 15 /100 WBC; PLATELET ESTIMATE DECREASED
[2020-05-21] VITALS: BP 137/75
[2020-05-21 04:00] VITALS: BP 125/72
[2020-05-21] MEDS: BLOOD SUGAR DIAGNOSTIC STRIP TEST SCH ×4 (06:35→21:00)
[2020-05-21] MEDS: SODIUM CHLORIDE 0.45% 1,000 ML IV SCH (06:35)
[2020-05-21 07:24] LABS: HEMATOCRIT. 31.5 % (36.0-48.0); HEMOGLOBIN. 10.2 g/dL (12.0-16.0); MEAN CORPUSCULAR VOLUME 101.3 fL (81.0-99.0); MEAN PLATELET VOLUME 11.7 fl (7.4-10.4); PLATELET 104 x1000/uL (130-400); RED CELL DISTRIBUTION WIDTH 16.3 % (11.6-14.6)
[2020-05-21 08:02] VITALS: BP 120/51
[2020-05-21] MEDS: ASPIRIN 81MG TABLET PO SCH (08:51)
[2020-05-21] MEDS: DEXAMETHASONE 4MG/ML 1ML VIAL IV SCH (08:52)
[2020-05-21] MEDS: METOPROLOL TARTRATE 50MG TABLET PO SCH ×2 (08:52→23:05)
[2020-05-21] MEDS: FAMOTIDINE 20MG/2ML VIAL IV SCH (08:53)
[2020-05-21] MEDS: INSULIN LISPRO 100 UNITS/ML SUBCUT SCH ×4 (08:54→23:11)
[2020-05-21] MEDS: INSULIN GLARGINE UD 100 UNITS/ML SYR SUBCUT SCH (11:34)
[2020-05-21] MEDS: DEXTROSE 5% WATER 1,000 ML IV SCH (11:48)
[2020-05-21 12:09] LABS: NUCLEATED RED BLOOD CELLS 9 /100 WBC
[2020-05-21 12:10] LABS: PLATELET ESTIMATE DECREASED
[2020-05-21 12:41] VITALS: BP 123/66
[2020-05-21] MEDS ORDERED: MORPHINE SULFATE 2 MG/ML CPJ (NOT FOR IM USE) IV NR (13:00)
[2020-05-21] MEDS ORDERED: LORAZEPAM 2MG/ML CPJ IV PRN (13:00)
[2020-05-21] MEDS ORDERED: MORPHINE SULFATE 250 MG in DEXT 5% WATER 240 ML IV PRN (13:00)
[2020-05-21 16:06] VITALS: BP 125/67
[2020-05-21 20:00] VITALS: BP 140/72
[2020-05-22] VITALS: BP 146/71
[2020-05-22] MEDS: DEXTROSE 5% WATER 1,000 ML IV SCH ×2 (00:05→13:25)
[2020-05-22 04:00] VITALS: BP 126/62
[2020-05-22 07:08] LABS: BASOPHILS % 0.1 % (0.0-2.0); EOSINOPHILS % 0.3 % (0.0-5.0); HEMATOCRIT. 35.4 % (36.0-48.0); HEMOGLOBIN. 11.3 g/dL (12.0-16.0); LYMPHOCYTES % 10.7 % (20.0-50.0); MEAN CORPUSCULAR HEMOGLOBIN 33.5 pg (28.0-32.0); MEAN CORPUSCULAR VOLUME 105.1 fL (81.0-99.0); MEAN PLATELET VOLUME 11.4 fl (7.4-10.4); MONOCYTES % 6.7 % (2.0-8.0); NEUTROPHILS % 82.2 % (40.0-76.0); PLATELET 91 x1000/uL (130-400); RED BLOOD CELL COUNT 3.37 mill/uL (4.2-5.4); RED CELL DISTRIBUTION WIDTH 17.4 % (11.6-14.6)
[2020-05-22 07:38] LABS: CHLORIDE 119 mEq/L (98-107)
[2020-05-22 07:47] LABS: PHOSPHORUS 3.2 mg/dL (2.5-4.9)
[2020-05-22] MEDS: INSULIN LISPRO 100 UNITS/ML SUBCUT SCH ×4 (07:50→22:11)
[2020-05-22 08:00] VITALS: BP 120/65
[2020-05-22] MEDS: BLOOD SUGAR DIAGNOSTIC STRIP TEST SCH ×4 (08:10→21:00)
[2020-05-22] MEDS: ACETAMINOPHEN 325MG TABLET PO PRN (11:51)
[2020-05-22 12:00] VITALS: BP 126/66
[2020-05-22] MEDS: METOPROLOL TARTRATE 50MG TABLET PO SCH ×2 (12:09→21:00)
[2020-05-22] MEDS: DEXAMETHASONE 4MG/ML 1ML VIAL IV SCH (12:09)
[2020-05-22] MEDS: FAMOTIDINE 20MG/2ML VIAL IV SCH (12:10)
[2020-05-22] MEDS: ASPIRIN 81MG TABLET PO SCH (12:10)
[2020-05-22] MEDS: INSULIN GLARGINE UD 100 UNITS/ML SYR SUBCUT SCH (12:12)
[2020-05-22 16:00] VITALS: BP 109/58
[2020-05-22 20:00] VITALS: BP 95/56
[2020-05-23] VITALS: BP 94/54
[2020-05-23] MEDS: DEXTROSE 5% WATER 1,000 ML IV SCH ×3 (02:45→19:21)
[2020-05-23 04:00] VITALS: BP 144/60
[2020-05-23 06:12] LABS: CHLORIDE 120 mEq/L (98-107)
[2020-05-23 06:17] LABS: BASOPHILS % 0.1 % (0.0-2.0); EOSINOPHILS % 0.4 % (0.0-5.0); HEMATOCRIT. 31.6 % (36.0-48.0); LYMPHOCYTES % 13.1 % (20.0-50.0); MEAN CORPUSCULAR HEMOGLOBIN 32.8 pg (28.0-32.0); MEAN CORPUSCULAR VOLUME 103.1 fL (81.0-99.0); MEAN PLATELET VOLUME 11.8 fl (7.4-10.4); MONOCYTES % 5.1 % (2.0-8.0); NEUTROPHILS % 81.3 % (40.0-76.0); PLATELET 96 x1000/uL (130-400); RED BLOOD CELL COUNT 3.06 mill/uL (4.2-5.4); RED CELL DISTRIBUTION WIDTH 17.8 % (11.6-14.6)
[2020-05-23] MEDS: BLOOD SUGAR DIAGNOSTIC STRIP TEST SCH (07:03)
[2020-05-23] MEDS: INSULIN LISPRO 100 UNITS/ML SUBCUT SCH (07:34)
[2020-05-23 08:00] VITALS: BP 143/69
[2020-05-23] MEDS: DEXAMETHASONE 4MG/ML 1ML VIAL IV SCH (09:00)
[2020-05-23] MEDS: ASPIRIN 81MG TABLET PO SCH (09:00)
[2020-05-23] MEDS: FAMOTIDINE 20MG/2ML VIAL IV SCH (09:00)
[2020-05-23] MEDS: METOPROLOL TARTRATE 50MG TABLET PO SCH ×2 (09:00→19:21)
[2020-05-23] MEDS: INSULIN GLARGINE UD 100 UNITS/ML SYR SUBCUT SCH (09:52)
[2020-05-23 12:00] VITALS: BP 146/81
[2020-05-23 16:00] VITALS: BP 106/62
[2020-05-23 20:00] VITALS: BP 123/78
[2020-05-24 00:36] VITALS: BP 102/57
== END 2020-05-24 06:50 | disposition expired | DRG 871 ==
LOC: ER 10:28 → MICUSO 12:24 → EDBEDREQ 12:37 → 8WST 04-28 21:58 → 6WST 05-18 05:37
PROVIDERS: ADMIT Internal Medicine; ATTEND Internal Medicine
DX: A41.89 Other specified sepsis (principal); U07.1 COVID-19; J96.01 Acute respiratory failure with hypoxia; J12.82 Pneumonia due to coronavirus disease 2019; G93.41 Metabolic encephalopathy; E44.0 Moderate protein-calorie malnutrition; N17.9 Acute kidney failure, unspecified; E87.0 Hyperosmolality and hypernatremia; I45.10 Unspecified right bundle-branch block; M06.9 Rheumatoid arthritis, unspecified; I10 Essential (primary) hypertension; E87.6 Hypokalemia; E11.65 Type 2 diabetes mellitus with hyperglycemia; R65.20 Severe sepsis without septic shock; T38.0X5A Adverse effect of glucocorticoids and synthetic analogues, initial encounter; M54.89 Other dorsalgia; R00.0 Tachycardia, unspecified; I95.9 Hypotension, unspecified; E66.9 Obesity, unspecified; B97.89 Other viral agents as the cause of diseases classified elsewhere; E83.52 Hypercalcemia; E86.0 Dehydration; E87.5 Hyperkalemia; Z51.5 Encounter for palliative care; Z66 Do not resuscitate; Z79.899 Other long term (current) drug therapy; Z87.891 Personal history of nicotine dependence; Z68.27 Body mass index [BMI] 27.0-27.9, adult
CPT/HCPCS: 36415; 71045; 76770; 80048; 80053; 80061; 80305; 81003; 82550; 82570; 82728; 82962; 83036; 83540; 83550; 83605; 83735; 83880; 84100; 84145; 84156; 84484; 85025; 85379; 85384; 86140; 87426; 87635; 93005; 99291; A6261; C1893; C9113; J0456; J0696; J1100; J1650; J1815; J1940; J2060; J2274; J2543; J3370; J3480; J3490; J7060; J7070; A4315